=== PATIENT | female | born 1965 | race Caucasian/White ===

== ENCOUNTER 2020-01-07 07:16 | Emergency (ER) | payer OTHER, SELFPAY ==
[2020-01-07 07:17] VITALS: BP 165/82; PULSE 67; RESP 14; TEMP 36.3; O2SAT 100
--- NOTE | 2020-01-07 07:52 | ED.GENADULT ---
HPI - General Adult General Chief complaint: Unspecified Stated complaint: ST Time Seen by Provider: 01/07/20 07:19 Source: patient Mode of arrival: ambulatory History of Present Illness HPI narrative: Patient is a 54 y/o female complaining of sorethroat and headache for 2 days. She rates her pain as 4/10. Her sorethroat is worse with swallowing. However, she is able to eat and drink. She has no SOB. She has no fever, cough, neck pain or stiffness. Related Data Home Medications Medication Instructions Recorded Confirmed levothyroxine [Synthroid] 01/07/20 metoprolol tartrate 01/07/20 Allergies Allergy/AdvReac Type Severity Reaction Status Date / Time Penicillins Allergy Mild HIVES Verified 01/07/20 07:20 Review of Systems Constitutional: Constitutional: Denies chills, Denies fever(s), Denies headache(s) and Reports weakness Eyes: Eyes: Denies blurry vision ENT: Denies headache(s) and Denies neck pain Cardiovascular: Cardiovascular: Reports chest pain and Denies dyspnea Respiratory: Respiratory: Denies cough and Denies dyspnea Gastrointestinal: Gastrointestinal: Denies abdominal pain, Denies diarrhea, Denies nausea and Denies vomiting Genitourinary: Genitourinary: Denies hematuria and Denies dysuria Musculoskeletal: Musculoskeletal: Denies back pain and Denies neck pain Neurologic: Denies headache(s) and Denies weakness [facility] Social History Social History Gender identity (if verbalized by the patient): Female Exam Const: General: no acute distress and well developed Orientation/consciousness: oriented to person, oriented to place, oriented to time and patient oriented x3 HENMT: Head: normocephalic Ears: external ears normal General nose exam: Normal external nose present Other: posterior pharyngeal erythema Eyes: General: appearance normal, both eyes and all related structures Conjunctivae: conjunctivae normal Neck: Neck: normal visual inspection Chest: Chest palpation & inspection: normal inspection of the chest Resp: Effort & Inspection: normal respiratory effort and able to speak in complete sentences GI: GI Palp: Yes abdominal tenderness Skin: General skin exam: normal color and turgor normal Neuro: General: oriented to person, oriented to place, oriented to time and patient oriented x3 Cognition (Neuro): normal cognition Extrem: General: normal to inspection, full ROM and no pedal edema Psych: Appearance: grossly normal Mental Status: mental status grossly normal Affect: normal affect Course Vital Signs Vital signs: Vital Signs Temperature 36.3 C L 01/07/20 07:17 Pulse Rate 67 01/07/20 07:17 Respiratory Rate 14 01/07/20 07:17 Blood Pressure 165/82 H 01/07/20 07:17 Pulse Oximetry 100 01/07/20 07:17 Temperature 36.3 C L 01/07/20 07:17 Pulse Rate 67 01/07/20 07:17 Respiratory Rate 14 01/07/20 07:17 Blood Pressure 165/82 H 01/07/20 07:17 Pulse Oximetry 100 01/07/20 07:17 Medical Decision Making Vital Signs Vital Signs: Vital Signs Temperature 36.3 C L 01/07/20 07:17 Pulse Rate 67 01/07/20 07:17 Respiratory Rate 14 01/07/20 07:17 Blood Pressure 165/82 H 01/07/20 07:17 Pulse Oximetry 100 01/07/20 07:17 Temperature 36.3 C L 01/07/20 07:17 Pulse Rate 67 01/07/20 07:17 Respiratory Rate 14 01/07/20 07:17 Blood Pressure 165/82 H 01/07/20 07:17 Pulse Oximetry 100 01/07/20 07:17 Lab Data Labs: Strep Screen Positive Group A Strep *(Reference Range: Negative)* Discharge Plan Discharge Clinical Impression: Acute streptococcal pharyngitis Patient Disposition: Home, Self-Care Condition: Stable Instructions: Antibiotic Form, Strep Throat (ED) Prescriptions: New azithromycin [Zithromax Z-Umair] 250 mg tablet See Rx Instructions .ROUTE .COMPLEX Qty: 6 RF: 0 No Action levothyroxine [Synthroid] 112 mc
== END 2020-01-07 08:21 | disposition home or self-care (01) ==
LOC: ANHED 08:14
PROVIDERS: Emergency Provider Emergency Medicine; PCP Physician Assistant
DX: J02.0 Streptococcal pharyngitis (principal)
CPT/HCPCS: 87880; 99283

== ENCOUNTER 2020-04-12 12:24 | Outpatient (CLI) | payer OTHER, SELFPAY ==
[2020-04-13 01:03] LABS: SARS-CoV-2 RNA PCR Positive
== END 2020-04-12 12:25 | disposition home or self-care (01) ==
LOC: CHSLAB 12:28
PROVIDERS: PCP Physician Assistant; Visit Provider Physician Assistant
DX: U07.1 COVID-19 (principal)
CPT/HCPCS: 87635; C9803; U0003